=== PATIENT | male | born 1975 | race African-American/Black ===

== ENCOUNTER 2016-10-12 15:00 | Emergency (ER) | payer MEDICAID ==
[~2016-10-12] VITALS: Ht 167.6 cm; Wt 67.1 kg
[2016-10-12 15:44] VITALS: BP 122/74
== END 2016-10-12 16:34 | disposition home or self-care (01) ==
LOC: ER 15:16
DX: S16.1XXA Strain of muscle, fascia and tendon at neck level, initial encounter (principal); V49.9XXA Car occupant (driver) (passenger) injured in unspecified traffic accident, initial encounter; Y93.89 Activity, other specified; Y99.8 Other external cause status; Y92.488 Other paved roadways as the place of occurrence of the external cause